=== PATIENT | male | born 1995 | race Caucasian/White ===

== ENCOUNTER 2017-10-21 10:44 | Emergency (ER) | payer BC ==
--- NOTE | 2017-10-21 11:12 | EDM.PDOC ---
ED HPI GENERAL MEDICAL PROBLEM - General Chief Complaint: General Stated Complaint: STD TEST Time Seen by Provider: 10/21/17 10:46 Source of Information: Reports: Patient History Limitations: Reports: No Limitations - History of Present Illness INITIAL COMMENTS - FREE TEXT/NARRATIVE: HISTORY AND PHYSICAL: History of present illness: Patient is a 22-year-old male who presents to the emergency room with concerns of STD exposure. He states he recently engaged in a new relationship and was told by his partner that she had trichomonas. Last had sex with this partner 4 days ago. He is currently asymptomatic. He denies any pain, itching, discharge or lesions. Denies any testicular swelling, pain or lesions. Denies any fever or chills. Denies dysuria or difficulty starting his stream. Denies any abdominal pain, nausea, vomiting or diarrhea. Patient has never been tested or treated prior for any STDs. Patient reports that his partner has already been treated with antibiotics. Review of systems: As per history of present illness and below otherwise all systems reviewed and negative. Past medical history: As per history of present illness and as reviewed below otherwise noncontributory. Surgical history: As per history of present illness and as reviewed below otherwise noncontributory. Social history: No reported history of drug or alcohol abuse. Family history: As per history of present illness and as reviewed below otherwise noncontributory. Physical exam: Gen.: Well-developed and well-nourished 22-year-old male. Appears in no acute distress and nontoxic. Alert and oriented. HEENT: Atraumatic, normocephalic, pupils reactive, negative for conjunctival pallor or scleral icterus, mucous membranes moist, throat clear, neck supple, nontender, trachea midline. Lungs: Clear to auscultation, breath sounds equal bilaterally, chest nontender. Heart: S1S2, regular, negative for clicks, rubs, or JVD. Abdomen: Soft, nondistended, nontender. Negative for masses or hepatosplenomegaly. Negative for costovertebral tenderness. Pelvis: Stable nontender. Genitourinary: Deferred. Rectal: Deferred. Extremities: Atraumatic, negative for cords or calf pain. Neurovascular unremarkable. Neuro: Awake, alert, oriented. Cranial nerves II through XII unremarkable. Cerebellum unremarkable. Motor and sensory unremarkable throughout. Exam nonfocal. Discussed with the patient in great length about safe sex practices. These medications were reviewed with the patient along with possible side effects. Prescription for azithromycin 1 gm single dose and Flagyl 2 gm single dose. Discussed avoiding alcohol for the next 72 hours post medication administration. Patient is agreeable to plan of care and voices understanding. Denies any further questions at this time. Diagnostics: Gonorrhea, chlamydia, UA (looking for trichomonas) Therapeutics: 250 mg Rocephin IM Impression: STD exposure Plan: 1. Please practice safe sex. May want to be retested after both you and her partner have been treated to make sure that the infections have resolved. 2. Fill your prescription and take those with food. May cause an upset stomach. Avoid alcohol use for 72 hours after medication intake. 3. Follow-up with your primary care provider in the next 1-2 days. Return to the ED as needed and as discussed. Definitive disposition and diagnosis as appropriate pending reevaluation and review of above. Onset: Unknown/Unsure - Related Data Allergies Allergy/AdvReac Type Severity Reaction Status Date / Time No Known Allergies Allergy Verified 10/21/17 10:48 Home Meds: Home Meds . [No Known Home Meds] 10/21/17 [History] Past Medical History - Past Health History Medical/Surgical History: Denies Medical/Surgical History Social & Family History - Family History Family Medical History: Noncontributory - Tobacco Use Smoking Status *Q: Never Smoker - Recreational Drug Use Recreational Drug Use: No ED ROS GENERAL - Review of Systems Review Of Systems: ROS reveals no pertinent complaints other than HPI. ED EXAM, GENERAL - Physical Exam Exam: See Below (See dictation) Course - Vital Signs Last Recorded V/S: Last Vital Signs Temp 36.9 C 10/21/17 10:51 Pulse 73 10/21/17 10:51 Resp 18 10/21/17 10:51 BP 144/84 H 10/21/17 10:51 Pulse Ox - Orders/Labs/Meds Orders: Active Orders 24 hr Category Date Time Status CHLAMYDIA AND GONORRHEA BY TMA Stat Lab 10/21/17 10:50 Received Lidocaine 1% [Xylocaine 1%] Med 10/21/17 11:29 Once 20 ml INJECT ONETIME ONE Medication Orders Lidocaine HCl (Xylocaine 1%) 20 ml INJECT ONETIME ONE Stop: 10/21/17 11:30 Labs: Laboratory Tests 10/21/17 Range/Units 10:50 Urine Color YELLOW Urine Appearance CLOUDY Urine pH 7.5 (5.0-8.0) Ur Specific [place] 1.020 (1.001-1.035) Urine Protein NEGATIVE (NEGATIVE) mg/dL Urine Glucose (UA) NEGATIVE (NEGATIVE) mg/dL Urine Ketones NEGATIVE (NEGATIVE) mg/dL Urine Occult Blood NEGATIVE (NEGATIVE) Urine Nitrite NEGATIVE (NEGATIVE) Urine Bilirubin NEGATIVE (NEGATIVE) Urine Urobilinogen 1.0 (<2.0) EU/dL Ur Leukocyte Esterase NEGATIVE (NEGATIVE) Urine RBC 0-1 (0-2/HPF) Urine WBC 0-1 (0-5/HPF) Ur Epithelial Cells RARE (NONE-FEW) Amorphous Sediment HEAVY (NEGATIVE) Urine Bacteria RARE (NEGATIVE) Meds: Medications Generic Name Dose Route Start Last Admin Trade Name Freq PRN Reason Stop Dose Admin Lidocaine HCl 20 ml 10/21/17 11:29 Xylocaine 1% INJECT 10/21/17 11:30 ONETIME ONE Discontinued Medications Generic Name Dose Route Start Last Admin Trade Name Freq PRN Reason Stop Dose Admin Ceftriaxone Sodium 250 mg 10/21/17 11:25 Rocephin IM 10/21/17 11:26 ONETIME ONE Departure - Departure Time of Disposition: 11:31 Disposition: Home, Self-Care 01 Clinical Impression: STD exposure - Discharge Information Referrals: PCP,None [Primary Care Provider] - Forms: ED Department Discharge Additional Instructions: My general discharge The following information is given to patients seen in the emergency department who are being discharged to home. This information is to outline your options for follow-up care. We provide all patients seen in our emergency department with a follow-up referral. The need for follow-up, as well as the timing and circumstances, are variable depending upon the specifics of your emergency department visit. If you don't have a primary care physician on staff, we will provide you with a referral. We always advise you to contact your personal physician following an emergency department visit to inform them of the circumstance of the visit and for follow-up with them and/or the need for any referrals to a consulting specialist. The emergency department will also refer you to a specialist when appropriate. This referral assures that you have the opportunity for follow-up care with a specialist. All of these measure are taken in an effort to provide you with optimal care, which includes your follow-up. Under all circumstances we always encourage you to contact your private physician who remains a resource for coordinating your care. When calling for follow-up care, please make the office aware that this follow-up is from your recent emergency room visit. If for any reason you are refused follow-up, please contact the [facility] Emergency Department at and asked to speak to the emergency department charge nurse. [facility] [address] [place] [phone] 1. Please practice safe sex. May want to be retested after both you and her partner have been treated to make sure that the infections have resolved. 2. Fill your prescription and take those with food. May cause an upset stomach. Avoid alcohol use for 72 hours after medication intake. 3. Follow-up with your primary care provider in the next 1-2 days. Return to the ED as needed and as discussed. - My Orders Last 24 Hours: My Active Orders 10/21/17 10:50 CHLAMYDIA AND GONORRHEA BY TMA Stat 10/21/17 11:29 Lidocaine 1% [Xylocaine 1%] 20 ml INJECT ONETIME ONE - Assessment/Plan Last 24 Hours: My Active Orders 10/21/17 10:50 CHLAMYDIA AND GONORRHEA BY TMA Stat 10/21/17 11:29 Lidocaine 1% [Xylocaine 1%] 20 ml INJECT ONETIME ONE
[2017-10-21] MEDS ORDERED: cefTRIAXone 250 MG Vial IM ONE (11:25)
[2017-10-21] MEDS ORDERED: Lidocaine 1% 20 ML MDV INJECT ONE (11:29)
== END 2017-10-21 12:01 | disposition home or self-care (01) ==
LOC: MW.ED 10:44
DX: Z20.2 Contact with and (suspected) exposure to infections with a predominantly sexual mode of transmission (principal)
CPT/HCPCS: 81001; 87491; 87591; 99283; J0696